=== PATIENT | male | born 1940 | race Caucasian/White ===

== ENCOUNTER 2023-07-06 14:34 | Emergency (ER) | payer MEDICARE, SELFPAY ==
[2023-07-06 15:04] VITALS: BP 114/64; PULSE 74; RESP 16; TEMP 36.7; O2SAT 98; BMI 23.6
--- NOTE | 2023-07-06 15:28 | ED_ITS ---
HPI - Back Pain/Injury <Gale Mendez PA-C - Last Filed: 07/06/23 16:03> General Chief Complaint: Back Pain/Injury Stated Complaint: stumbled aches and pains Time Seen by Provider: 07/06/23 15:28 Source: patient History of Present Illness HPI Narrative: Patient is a 89-year-old male presenting for evaluation after fall sustained at about 2:00pm on the 2nd level of the hospital. He states that he was visiting his who just had a knee replacement. He reports that he is chronic conditions of Parkinson's. He states that he was walking with his cane in her doorway and 1 of his feet slipped out from under him. He states that he fell onto his bottom then landed against the wall. With his left shoulder. He states that the left side of his neck is sore. He reports a history of a CA several years ago. He denies any numbness in his legs or any pain in his back. He states that he is pain in his left flank in along his right buttocks. He denies any hip pain. He denies any midline neck tenderness but states the pain is on the left side of his neck. He denies hitting his head or neck. He denies taking anticoagulants and states he takes an aspirin. He notes he took 2 Tylenol prior to his fall. He states that he will be staying here in the hospital overnight. Related Data Allergies Allergy/AdvReac Type Severity Reaction Status Date / Time oxycodone AdvReac Confusion Verified 07/06/23 15:07 Review of Systems <Gale Mendez PA-C - Last Filed: 07/06/23 16:03> Review of Systems Narrative: See HPI Exam <Gale Mendez PA-C - Last Filed: 07/06/23 16:03> Initial Vital Signs Initial Vital Signs: Vital Signs Temperature 98.1 F 07/06/23 15:04 Pulse Rate 74 07/06/23 15:04 Respiratory Rate 16 07/06/23 15:04 Blood Pressure 114/64 07/06/23 15:04 Pulse Oximetry 98 07/06/23 15:04 Oxygen Delivery Method Room Air 07/06/23 15:04 GENERAL: 83 year old patient appears stated age. Well-developed patient, in no acute distress. HEAD: Atraumatic. Normocephalic. EYES: Pupils equal round No scleral icterus. No injection or drainage. NECK: Trachea midline, supple tender to palpation of left superior trapezius RESPIRATORY: Speaking comfortably normal tone of voice without any increased work of breathing. EXTREMITIES: 5/5 bilateral knee flexion extension strength present, difficult to elicit due to patient position. BACK: No midline spinal tenderness palpated over cervical thoracic or lumbar or sacral spine. NEURO: AOx3. equal DTR patellar 1+ bilaterally, SKIN: No rash or erythema of visible areas <Tori Brandon DO - Last Filed: 07/06/23 19:46> Initial Vital Signs Initial Vital Signs: Vital Signs Temperature 98.1 F 07/06/23 15:04 Pulse Rate 74 07/06/23 15:04 Respiratory Rate 16 07/06/23 15:04 Blood Pressure 114/64 07/06/23 15:04 Pulse Oximetry 98 07/06/23 15:04 Oxygen Delivery Method Room Air 07/06/23 15:04 Course <Gale Mendez PA-C - Last Filed: 07/06/23 16:03> Orders Ordered: Discontinued Medications Lidocaine (Lidocaine 5% Patch) 1 each TOP NOW ONE Stop: 07/06/23 15:48 Last Admin: 07/06/23 15:50 Dose: 1 each Documented By: MARIELY Vital Signs Vital signs: Vital Signs - 8 hr 07/06/23 15:04 07/06/23 16:01 Temperature 98.1 F Pulse Rate 74 63 Respiratory Rate 16 16 Blood Pressure 114/64 150/77 H Pulse Oximetry 98 96 Oxygen Delivery Method Room Air Room Air <Tori Brandon DO - Last Filed: 07/06/23 19:46> Orders Ordered: Discontinued Medications Lidocaine (Lidocaine 5% Patch) 1 each TOP NOW ONE Stop: 07/06/23 15:48 Last Admin: 07/06/23 15:50 Dose: 1 each Documented By: MARIELY Vital Signs Vital signs: Vital Signs - 8 hr 07/06/23 15:04 07/06/23 16:01 Temperature 98.1 F Pulse Rate 74 63 Respiratory Rate 16 16 Blood Pressure 114/64 150/77 H Pulse Oximetry 98 96 Oxygen Delivery Method Room Air Room Air MDM - Back Pain/Injury <Gale Mendez PA-C - Last Filed: 07/06/23 16:03> [facility] Narrative Medical decision making narrative: Patient is an 83-year-old male with Parkinson's presenting for evaluation after a fall from standing sustained on the 2nd floor of the hospital around 2:00 p.m. His main complaint upon evaluation in the emergency department is left-sided neck stiffness as well as left flank pain and tenderness over right buttocks. He denies injury to head or neck and denies taking anticoagulants. Due to lack of bony tenderness with normal strength exam, fall from standing in no blow to head or neck, no headache, no dizziness or weakness or visual disturbances reported, suspicion is low for further occult injury. Discussed with patient that his age does put him at a greater risk for hit in complication such as brain bleed or fracture, but patient defers further imaging. Recommend careful monitoring and prompt follow up in the emergency room if he should develop any dizziness, balance disturbance, confusion, weakness or other concerning signs or symptoms. Patient has been provided with lidocaine patch for his pain and warm compress while in the ED. I recommend continued treatment at home with warm compress to his neck, gentle stretching, lidocaine patches which he can get [id number] at the pharmacy and continue Tylenol. He is agreeable with plan of care. Findings and discharge diagnosis discussed with patient/family followed by verbalization of understanding Return precautions discussed with patient/family whom verbalize understanding of diagnosis and plan Discharge Plan Departure Patient Disposition: Home Clinical Impression: Neck muscle spasm, Back muscle spasm Fall Qualifiers: Encounter type: initial encounter Qualified Code(s): W19.XXXA - Unspecified fall, initial encounter Activity Restrictions/Additional Instructions: Thank you for coming in today for your care. You were diagnosed with a muscle spasm of the left side of your neck and your back after a fall from standing height. We discussed possibility of further imaging today to further evaluate your brain due to the risk factors of your age, but since you have no headache dizziness, visual disturbance, evidence of neurological abnormality and there was no direct injury to your head or neck, you have chosen to defer further imaging at this time. I recommend continued monitoring and prompt follow up in the ER if you should develop any of the symptoms which we discussed or any other concerning signs or symptoms. I recommend treatment with lidocaine patch to your neck as well as a warm compress to your neck and back, and gentle stretching exercises in addition to Tylenol as needed. It has been a pleasure meeting you today. *Please follow up with your primary care provider in 2-3 days, call for an appointment. Let them know you were seen in the Emergency Department and that we ask that you be seen in follow up. We will electronically transmit a record of today's note if your PCP is in our system *If you do not have a primary care provider please contact the [facility] Resource line at [phone]. They will ask some questions about your medical history and help get you set up with a doctor in the community. *Return to Emergency Department if you should have any new, worsening or concerning symptoms, such as dizziness, confusion, visual disturbance, headache, weakness or other concerning signs or symptoms. Referrals: Miscellaneous,Doctor, MD [Primary Care Provider] - Stand Alone Forms: Patient Portal/API ED Sign-out <Tori Brandon DO - Last Filed: 07/06/23 19:46> Cosign ED Attending Seema Attestation: I was available for consultation.
[2023-07-06] MEDS: LIDOCAINE 5% PATCH 1 EACH TOP (15:50)
--- NOTE | 2023-07-06 15:58 | PC.NURSE ---
patient is able to ambulate and sit and stand without complaints of pain. He has a steady gate while assisted with a cane and is eager to leave since he has people waiting for him.
[2023-07-06 16:01] VITALS: BP 150/77; PULSE 63; RESP 16; O2SAT 96
== END 2023-07-06 16:05 | disposition home or self-care (01) ==
PROVIDERS: Emergency Provider Physician Assistant
DX: M62.830 Muscle spasm of back (principal); I25.2 Old myocardial infarction; W18.30XA Fall on same level, unspecified, initial encounter
CPT/HCPCS: 99282